=== PATIENT | female | born 1950 | race Caucasian/White ===

== ENCOUNTER → 2020-01-21 09:23 | Outpatient (CLI) | payer MEDICARE, OTHER, SELFPAY ==
[2020-01-21 11:28] LABS: COVID19 -Nasal RAPID Negative (Negative)
== END ==
PROVIDERS: PCP Family Medicine; Visit Provider Physician Assistant
DX: Z11.59 Encounter for screening for other viral diseases (principal)
CPT/HCPCS: 87635

== ENCOUNTER 2020-01-23 06:22 | Day surgery (SDC) | payer MEDICARE, SELFPAY ==
[2020-01-16 13:46] VITALS: BMI 36.7
[2020-01-23] VITALS (20 sets, daily range): BP systolic 94–153; BP diastolic 45–84; PULSE 52–74; RESP 10–18; TEMP 35.8–36.6; O2SAT 92–99; BMI 40.4
--- NOTE | 2020-01-23 06:29 | DI.RAD.S_ITS ---
PROCEDURE: XR KNEE RT 1TO2V INDICATIONS: post op films TECHNIQUE: To view(s) of the knee acquired. COMPARISON: None. FINDINGS: Bones: Patient is status post knee joint arthroplasty. Hardware components are in expected positions. Visualized bony structures are intact. Soft tissues: Overlying postoperative changes are noted. IMPRESSION: Normal alignment after right total knee arthroplasty. Dictated by: Kai Domínguez M.D. on 01/23/2020 at 11:46 Approved by: Kai Domínguez M.D. on 01/23/2020 at 11:46
[2020-01-23] MEDS: CELECOXIB 200 MG CAPSULE PO (07:09)
[2020-01-23] MEDS: ACETAMINOPHEN 325 MG TABLET 975 MG PO (07:09)
[2020-01-23] MEDS: PREGABALIN 75 MG CAPSULE PO (07:09)
[2020-01-23] MEDS: LACTATED RINGERS 1,000 ML 42 ML IV ×2 (07:15→09:06)
[2020-01-23] MEDS: CEFAZOLIN 2 GM/100 ML FROZ.PIGGY IV ×3 (07:49→23:42)
--- NOTE | 2020-01-23 07:49 | PM.PREOP ---
Pre-operative Note COVID-19 COVID-19 status: Negative Result date/Date tested (Pos, Neg/Pending): 01/21/20 Interval Note History & Physical reviewed/Exam performed by Physician: Yes Changes to H&P: No
--- NOTE | 2020-01-23 07:50 | P.OP_ITS ---
Operative Date/Time/Diagnoses Date of procedure: 01/23/20 Time of procedure: 09:33 Pre-op diagnosis: Right knee osteoarthritis Post-op diagnosis: same Procedure & Clinicians Procedure: Right total knee arthroplasty Same procedure as scheduled: Yes Indications: The patient presents today for total knee arthroplasty after failure of conservative treatment. The nature of the procedure including the risks and benefits, alternatives, postoperative course and expected outcome were discussed and all questions answered. Consent was obtained. Operative site confirmed and marked. Surgeon: Abimael Tidwell Barrel Cleaner: Tashi Robles Anesthesia Type: General, Spinal and Local Operative Notes Closure Type: primary Specimen(s): none sent Prosthetic devices, grafts, tissues, transplants, or devices: Espinal and Nephew Rosio BCS: [xx] femoral component, [xx] tibial component, [xx] mm BCS polyethylene tray and [xx] mm round patella Applied: implant(s) Estimated Blood Loss (mL): 5 Blood products transfused: none Tourniquet time (min): 67 Procedure in detail: The patient was taken to the operative suite and placed under anesthesia. The patient was given prophylactic antibiotics prior to surgery. The patient was also given tranexamic acid, 1 g, just prior to surgery for postoperative hemostasis. The lateral knee was prepped and the joint injected with 20 mL of 1% Lidocaine with epinephrine. The knee was then prepped and draped in usual sterile fashion. The leg was exsanguinated with an Esmarch dressing and the tourniquet raised to 300 torr. A 15 cm anterior incision was made. Next a medial trivector arthrotomy was made. The extensor mechanism was marked to ensure accurate repair. Initial exposing dissection was carried out medially and laterally. The knee was then flexed and the intramedullary femoral guide shelli placed. The distal femoral cut was made in 6? of valgus at the +1 position. The femoral size was measured and the appropriate cutting block was then placed and the anterior, posterior and chamfer cuts made. The intramedullary tibial alignment shelli was then placed. The guide was set to remove approximately 9 mm from the less affected medial side. The proximal tibial cut was then made with an oscillating saw. All meniscus and bony debris was then removed. Posterior femoral osteophytes removed with a curved osteotome. Flexion extension gaps were checked. No specific balancing was required other than routine exposure and removal of osteophytes. The soft tissues were then injected with a combination of 20 mL of half percent Marcaine with epinephrine and 20 mL of Exparel. The trial components were then placed. The knee was then extended and the patellar thickness was measured and a cut made removing approximately 9 mm of bone. The patella was then sized and drilled. Some excess lateral bone was excised and the patellofemoral ligament released. The knee went into full extension and flexion beyond 130?. There was excellent medial-lateral balance throughout motion. Patellar tracking was excellent. The trial components were removed and the knee was cleansed with Pulsavac irrigation and dried. The final components were cemented with high viscosity vacuum mixed bone cement with antibiotics. The joint was filled with a dilute Betadine solution. The knee was held in extension and the patellar clamped until the cement was adequately cured. The knee was then irrigated. The extensor mechanism was closed with 5 interrupted #1 Vicryl sutures and a running Quill suture at approximately 90 degrees of flexion. The joint was then injected with a combination of 1 g of tranexamic acid and 20 mL of quarter percent Marcaine with epinephrine. The subcutaneous tissue was closed with 2 0 Vicryl. The skin was closed with absorbable subcuticular sutures and surgical adhesive. An Aquacel dressing and Amadeo wrap were then applied. The patient tolerated the procedure well and was returned to recovery room in good condition. Complications: none Post-operative Condition: stable Disposition: PACU Plan for aftercare: [facility] Protocol.
--- NOTE | 2020-01-23 08:20 | SUR.OPER ---
Supine on padded OR bed. Pillow under head, arms secured on padded armboards <90 degree abduction. Safety belt across torso. Non-operative leg secured with tape over blanket over lower leg. Operative leg secured in Maikel positioner. Foam padded brace at thigh of operative leg.
[2020-01-23] MEDS: BUPIVACAINE 0.25% W/ EPI (PF) 40 ML, BUPIVACAINE LIPOSOME 266 MG, SODIUM CHLORIDE 0.9% ... INJ (08:26)
[2020-01-23] MEDS: LIDOCAINE 1% W/EPI 20 ML INJ (08:26)
[2020-01-23] MEDS: BUPIVACAINE 0.25% W/ EPI (PF) 20 ML, TRANEXAMIC ACID 1,000 MG, SODIUM CHLORIDE 0.9% 10 ML INJ (08:29)
[2020-01-23] MEDS: TRANEXAMIC ACID 1,000 MG VIAL 1000 MG INJ (08:38)
[2020-01-23] MEDS: LACTATED RINGERS 1,000 ML 100 ML IV ×2 (10:57→21:09)
--- NOTE | 2020-01-23 11:36 | PC.NURSE ---
Day shift note: Patient admitted to room 211 S/P Right TKA scheduled by Dr. Tidwell. Awake, alert, and pleasant. Received on RA, VSS and afebrile. IVF initiated, and SCDs placed on arrival. Oriented to room, environment, and plan of care. High fall risk precautions initiated, call light within reach.
[2020-01-23] MEDS: IBUPROFEN 400 MG TABLET PO ×3 (11:49→23:43)
[2020-01-23] MEDS: ONDANSETRON 4 MG/2 ML INJ IV ×2 (13:30→19:53)
--- NOTE | 2020-01-23 15:52 | PC.NURSE ---
Patient is nauseated and has had 400 cc or emesis, w/ 300 earlier. Patient feels like she can't move her head w/o feeling the need to vomit.
[2020-01-23] MEDS: METOCLOPRAMIDE 10 MG/2 ML INJ IV (16:43)
--- NOTE | 2020-01-23 16:46 | PT-IP ANOTE ---
Attempted to see pt twice. She was in good spirits as SPT gathered PLOF. However, with any movement, pt experienced nausea and emesis. Will follow up with pt morning of 01/24/20.
[2020-01-23] MEDS: SIMVASTATIN 40 MG TABLET PO (21:05)
[2020-01-23] MEDS: ACETAMINOPHEN 325 MG TABLET 650 MG PO (21:05)
[2020-01-23] MEDS: ASPIRIN EC 81 MG TABLET PO (21:05)
[2020-01-23] MEDS: DOCUSATE 100 MG CAPSULE PO (21:06)
[2020-01-23] MEDS: CITALOPRAM 10 MG TABLET 40 MG PO (21:06)
[2020-01-23] MEDS: OXYCODONE IR 5 MG TABLET PO (21:06)
[2020-01-23] MEDS: hydroCHLOROthiazide 12.5 MG CAPSULE PO (21:07)
[2020-01-23] MEDS: lisinopriL 20 MG TABLET PO (21:07)
[2020-01-23] MEDS: PANTOPRAZOLE 20 MG TABLET PO (21:07)
[2020-01-23] MEDS: hydrOXYzine pamoate 25 MG CAPSULE PO (21:14)
--- NOTE | 2020-01-23 22:52 | PC.NURSE ---
A&OX3. 97%RA. nausea controlled with reglan and zofran. pain 08/09 gave oxycodone 5mg per patient request. pt was SBA-fww to the BSC. cms+ scds. 1 incontinent void, PVR 40cc.
[2020-01-24] MEDS: IBUPROFEN 400 MG TABLET PO ×2 (03:59→08:50)
[2020-01-24 05:05] VITALS: BP 119/64; PULSE 53; RESP 16; O2SAT 99
[2020-01-24 05:46] LABS: Hematocrit 34.6 % (36-46); Hemoglobin 11.7 g/dL (12.0-16.0)
[2020-01-24] MEDS: OXYCODONE IR 5 MG TABLET PO (06:06)
[2020-01-24 07:23] VITALS: BP 111/61; PULSE 64; RESP 13; TEMP 36.4; O2SAT 96
--- NOTE | 2020-01-24 07:27 | PM.PN.1 ---
Subjective Subjective Date Patient Seen: 01/24/20 Time Patient Seen: 07:27 Interval history: Patient is POD#1 s/p R TKA with Dr. Tidwell. Had significant nausea and vomiting overnight that did not respond to Zofran. Reglan added overnight and patient had some relief. She denies any nausea or vomiting this morning. Pain has been controlled with Oxycodone. No complaints. Exam Vital Signs (past 8 hours): - 01/24/20 05:05 Pulse Rate 53 L Respiratory Rate 16 Blood Pressure 119/64 Pulse Oximetry 99 Oxygen Delivery Method Room Air Oxygen Flow Rate 0 Narrative Exam Narrative: 69 year old female resting in bed. Alert and oriented in no acute distress. Dressing in place is CDI. Calves are soft, nontender. Patient able to dorsiflex and plantar flex the ankle and toes. Objective Labs Result Diagrams: 01/24/20 05:15 Labs: Laboratory Results - last 24 hr 01/24/20 05:15 Hgb 11.7 L Hct 34.6 L PFSH Medical History Anxiety Depression GERD (gastroesophageal reflux disease) HLD (hyperlipidemia) HTN (hypertension) Osteoarthritis Surgical History (System 01/17/20 @ 13:59 by Lady Phyllis Lew) History of bunionectomy of both great toes History of surgery Hx of appendectomy (05/2019) Hx of arthroscopy of right knee (~2016) Hx of cholecystectomy (~2014) Hx of dilation and curettage Hx of sinus surgery Hx of tubal ligation Social History household members: spouse Smoking Status: Never smoker alcohol intake: current Assessment & Plan Assessment & Plan narrative: Patient doing well postop day 1 s/p total knee arthroplasty. Patient is obese which did increase the complexity of her surgery and puts her at higher risk for postoperative complications including poor wound healing and dehiscence. She will continue to work with PT today. Nausea/vomiting has stopped at this point. ASA 81mg BID for DVT prophylaxis. Her is available as assisted living housekeeper at home. Scripts were provided preop. Discharge to home later this afternoon.
[2020-01-24] MEDS: ACETAMINOPHEN 325 MG TABLET 650 MG PO (08:50)
[2020-01-24] MEDS: OXYCODONE IR 10 MG TABLET PO (08:51)
[2020-01-24] MEDS: DOCUSATE 100 MG CAPSULE PO (08:51)
[2020-01-24] MEDS: ASPIRIN EC 81 MG TABLET PO (08:51)
[2020-01-24 10:12] VITALS: PULSE 75; RESP 16; O2SAT 96
--- NOTE | 2020-01-24 10:30 | PT.IIE ---
Addendum entered and electronically signed by Heather Garza PT 01/24/20 11:10: Clarification on home set up: Pt able to access main level via ramp + 2 platform steps. Original Note: Current Diagnoses Unilateral primary osteoarthritis, right knee (01/23/20) Pain, unspecified (01/23/20) Surgery Performed Operation Date: 01/23/20 07:45 Actual Procedures p Total Knee Arthroplasty(Right) - Abimael Tidwell MD Surgical History (This Medical Record has been edited. Action required.) History of bunionectomy of both great toes History of surgery Hx of appendectomy (05/2019) Hx of arthroscopy of right knee (~2016) Hx of cholecystectomy (~2014) Hx of dilation and curettage Hx of sinus surgery Hx of tubal ligation Medical History (Last Reviewed 01/24/20 @ 07:31 by Sangeeta Love PA-C) Anxiety Depression GERD (gastroesophageal reflux disease) HLD (hyperlipidemia) HTN (hypertension) Osteoarthritis Physical Therapy Inpatient Evaluation/Re-Eval M1 PT/OT-IP Prior Functional Status Start: 01/23/20 12:00 Freq: NEEDED Status: Active Protocol: Document 01/23/20 14:07 DE (Rec: 01/23/20 14:16 DE [id number]) Medical Review Prior Functional Status Medical History Reviewed Yes Diet/Fluid Consistency Regular Communication WNL. No deficits noted. Able to make needs known. Mobility and Gait IND for all mobility and amb without AD at baseline. Pt had difficulty amb more than ~200 ft d/t severe knee pain. Activities of Daily Living and IADL's IND for all ADLs and IADLs including driving at baseline. Social History Household Members spouse Living Arrangements House Number of Floors (Floors) Two Floors Number of Stairs To Enter/Railing? Front entrance has 4 platform CRYSTAL. Pt's believes the front entrance would be the easiest way to enter. Side entrance has 1 CRYSTAL without railing Another entrance through laundry room has 4 CRYSTAL with R railing up. 13 steps inside with L railing up to bedrooms. Pt would like to be able to go to the upstairs. Home Environment Standard Height Toilet,Walk in Shower Home Equipment Front Wheel Walker,Straight Cane,Raised Toilet Seat w/ Armrests Employment Status Retired Additional Social History Comment took a week off work to assist pt at home. Pt also has other [facility] members and friends nearby who can help if needed. M2 PT-IP Current Condition Start: 01/23/20 12:00 Freq: NEEDED Status: Active Protocol: Document 01/24/20 10:25 DE (Rec: 01/24/20 10:49 DE [id number]) Physical Therapy Current Condition Current Condition Evaluation Date 01/24/20 Treatment Diagnosis R TKA; Difficulty with walking . Onset Date 01/23/20 Weight Bearing Status Weight Bearing Status Weight Bear as Tolerated M3 PT-IP Subjective Start: 01/23/20 12:00 Freq: NEEDED Status: Active Protocol: Document 01/24/20 10:25 DE (Rec: 01/24/20 10:49 DE [id number]) Subjective Physical Therapy Visit Type Type Initial Evaluation Visit Start Time 09:15 Visit Stop Time 09:56 Total Visit Minutes 41 Notes SPT Abimael led session under direct supervision of PT Heather throughout the entire session. Number of LOGGER ALL ROUND Visits 0 Physical Therapy Visit Comments Patient Comments Pt is agreeable to do PT. M4 PT-IP Mobility and Gait Start: 01/23/20 12:00 Freq: NEEDED Status: Active Protocol: Document 01/24/20 10:25 DE (Rec: 01/24/20 10:49 DE [id number]) PT-Bed Mobility Assessment Supine to Sit Supine to Sit Standby Assistance,Bedrails Scooting Scooting to Edge of Bed Standby Assistance PT-Transfer Assessment Sit to and From Stand Sit to and from Stand Contact Guard Assistance,Use of Upper Extremities Equipment Transfer Assistive Device Gait Belt,Front Wheeled Walker Orthotic/Prosthetic Devices or Brace: No Transfers Transfer Destination Chair Transfer Technique Stand Step Pivot Transfer Ability Level of Assist Contact Guard Assistance,Use of Upper Extremities Comments Mobility Comments Pt was lying supine with elevated HOB upon arrival. Spouse, Phillip, was at bedside. Pt completed supine to sit at R EOB SBA with B bedrails. Pt performed sit to stand with FWW CGA in staggered stance. Pt had most of WB through LLE during sit to stand. In standing, pt performed side to side weight shifting and marching in place. Pt tolerated WB on surgical limb well but had to rely heavily on the BUE. Pt then amb ~90 ft total out in the hallway and back to the room with FWW CGA. Pt demonstrated antalgic step -to gait pattern with limping, decreased stride length, and decreased feet clearance. Her gait speed was very slow, whih was 0.23 ft/s. Pt performed 1 platform step x2 with FWW CGA . The first time, pt performed with PT. the second time, pt performed with her , Phillip. Pt did not demonstrate any unsteadiness or LOB. Pt relied heavily on the FWW and PT instructed to stabilize the FWW. Pt then amb back to the room and sat down in the chair with FWW CGA. Call light placed within reach . Gait Assessment Gait Gait Assistance Required: Contact Guard Assist Distance (Feet) 90 Able to Maintain Weight Bearing Status Yes During Gait Assistive Devices Assistive Device Gait Belt,Front Wheeled Walker Orthotic/Prosthetic Devices or Brace: No Gait Deviations General Gait Pattern Antalgic,Decreased Stride Length,Decreased Feet Clearance,Step-to Gait Factors Limiting Gait Function Factors Limiting Gait Function Decreased Activity Tolerance, Decreased Strength,Limited Range of Motion,Pain,Poor Balance Comments Gait Comments See mobility comments. Stair Climbing Assessment Evaluation Level of Assist On Stairs Contact Guard Assistance Devices Stair Climbing Assistive Devices Front Wheel Walker Technique/Endurance Stair Climbing Direction Ascend and Descend Stair Climbing Technique Step to Step Number of Steps Climbed 1 Query Text: Stair Climbing Set # Repetitions (reps) 2 Comments Stair Climbing Comments See mobility comments. PT-Balance Assessment Sitting Balance and Reactions Static Sitting Balance Ability Normal Dynamic Sitting Balance Ability Good Standing Balance and Reactions Static Standing Balance Ability Good Dynamic Standing Balance Ability Fair M5 PT-IP Objective Assessments Start: 01/23/20 12:00 Freq: NEEDED Status: Active Protocol: Document 01/24/20 10:25 DE (Rec: 01/24/20 10:49 DE [id number]) Orientation Orientation/Cognition Level of Alertness Alert Orientation Name,Age,Birthday,Month,Date, Year,Day of Week,Place, Situation Language Function Ability No Deficits Noted Safety Awareness Understands Safety Issues Memory Description No Deficits Noted Gross Range of Motion Lower Extremity ROM Assessment Right Impaired Strength Lower Extremity Strength Assessment Right Impaired Coordination Assessment Gross Coordination Gross Coordination WNL Sensation Assessment Sensation Gross Sensation WNL Light Touch Intact Muscle Tone Muscle Tone WNL Yes M6 PT-IP Treatment Start: 01/23/20 12:00 Freq: NEEDED Status: Active Protocol: Document 11/24/20 10:25 DE (Rec: 01/24/20 10:49 DE [id number]) Physical Therapy Treatment Exercises Exercises Ankle Pumps,Gluteal Sets,Quad Sets,Heel Slides Education Education Provided Weight Bearing Status,Post-Op Packet,Safety Other Treatments Other Treatment Performed Pt was educated on WB status, safety, and role of PT. M7 PT-IP Assessment and Plan Start: 01/23/20 12:00 Freq: NEEDED Status: Active Protocol: Document 01/24/20 10:25 DE (Rec: 01/24/20 10:49 DE [id number]) PT Summary Assessment and Plan Potential Rehabilitation Potential Good Status of Condition at Evaluation Stable Summary Impairments Pain,ROM,Strength,Balance,Bed Mobility,Transfers,Gait, Activity Tolerance Progress Towards Goals Safe For Discharge Assessment Summary Etelvina is a 69 yo female s/p R TKA POD1. At baseline, Pt was IND for all mobility and amb without AD. Pt difficulty with amb more than ~200 ft d/t knee pain. On evaluation, pt required CGA-SBA for all mobility, transfers, amb, and stair slimbing with use of FWW . Pt amb ~90 ft and performed 1 platform step x2 with FWW CGA. Pt had very slow gait speed at ~0.23 ft/s but was steady without any LOB during amb or stair climbing. PT anticipates pt will be safe for d/c home with assistance. Pt will benefit from outpatient PT to improve knee ROM and strength as well as balance and activity tolerance . Frequency of Treatment Frequency Of Treatment Discharge Discharge Recommendations PT Discharge Recommendations Home with Assistance, Outpatient PT Transportation Needs at Discharge Private Vehicle Treatment was provided by Abimael Jefferson, PATRICE and supervised by Heather Garza, PT. I personally reviewed this note and agree with its contents.
--- NOTE | 2020-01-24 11:01 | PC.NURSE ---
Day shift note: Patient awake, alert, and pleasantly cooperative. CMS intact to RLE. Tolerating diet, and voiding. Up OOB, ambulating in hallway and in room with FWW. Cleared by PT for discharge. Discharge orders given to patient, discussed importance of F/U with Dr. Tidwell on scheduled appointment on the 01/29, s/sx of infection, new medication, and mobility restrictions. Both spouse and patient verbalized understanding of instructions. Dressed self with minimal assistance. Home via private vehicle in stable condition.
--- NOTE | 2020-01-24 13:47 | CM.DANOTE ---
Discharge Planning/Care Management DCP: assessment: initiated: case received and discussed in Team Rounds. A d/c order was in place. PT planned to see pt this morning. A check in after Rounds showed that pt was cleared for home by PT and left for home in company of spouse about 1100. Payer: [employer]. Admitted yesterday for scheduled R TKA: surgeon: Dr. Tidwell. No d/c concerns were noted by the care team members. Advanced directive, confirm from FAMILY Start: 01/23/20 11:04 Freq: Q24H Status: Discharge Protocol: Document 01/23/20 11:04 EM (Rec: 01/23/20 11:16 EM [id number]) Advance Directive, confirm on record Time 11:16 Person contacted Etelvina Copy received No CM Discharge Assessment Start: 01/24/20 13:47 Freq: Status: Active Protocol: Document 01/24/20 13:47 ITV (Rec: 01/24/20 13:47 ITV [id number]) Discharge Planning Assessment Advance Directives? Yes Advance Directives on File No History Provided By Medical Record Prior Living Arrangements House Household Members spouse Pre-Anesthesia Assessment Start: 01/16/20 13:46 Freq: Status: Discharge Protocol: Document 01/16/20 13:46 CAB (Rec: 01/16/20 14:31 CAB [id number]) Pre-Anesthesia Assessment Patient Information Reviewed Via Phone Assessment Assessment Completed With Patient Diagnostic Results BMP/CMP,CBC,EKG Comment Outside labs scanned, COVID screen-pt attempting to schedule Primary Care Provider Bj Luu Seen Specialist in Last 12 Months Yes Specialist Seen Orthopedist Primary Language Croatian Stock Buyer Required No Height 166.37 cm Weight 101.605 kg Body Mass Index (BMI) 36.7 Hearing Ability Normal Visual Assist Glasses Dentition Type Teeth, Natural Present Barriers to Learning None Hx Anesthesia Reactions No Hx Family Anesthesia Reaction No Hx Malignant Hyperthermia No Hx Blood Transfusions No Anesthesia Review Requested No alcohol intake current alcohol intake frequency a few times a month Smoking Status Never smoker Substance Use Type does not use Pain Present Pain Reported Musculoskeletal Symptoms Abnormal Gait,Difficulty Walking,Joint Pain History of Falling (Recent or History of Yes ) Patient is completely paralyzed or No completely immobile Mental Status Oriented to own ability Is patient on oxygen? No Does patient have MADRID/SOB No Hx Sleep Apnea No Currently Taking a Beta Lily No Can You Climb a Flight of Stairs Without Yes SOB Hx Chest Pain No Hx SOB No Hx Syncope or Dizziness No Anti-Coagulant Therapy No Has a Medical Research Scientist No Cardiac Testing No Hx Pacemaker/ICD No Pacemaker Rep Required? No Cardiac Clearance Received Not Applicable Diet Type At Home Regular dysphagia No Gastrointestinal Symptoms Constipation,Diarrhea,Reflux Urinary Catheter Present No Hx Urinary Self Catheterization No Diabetes No Patient No Lactating No Hx Drug Resistant Organism No Presence of External or Internal Medical No Devices Have you had any close contact with No someone diagnosed with COVID-19? Marital Status Lives With spouse,children Prior Living Arrangements House Number of Floors (Floors) Two Floors Support System Child/Children,Spouse Does the Patient Have Assistance After Yes Surgery Patient Discharge Plan Description Return Home Comment Pt advised 1 day length of stay per surgeon. Pt wants to go home same day Feels Safe in Current Environment Yes Been Physically Hurt or Threatened By a No Person in Current Environment Do you have thoughts of harming yourself None or others? Are you currently considering suicide? No Do you have a plan to hurt yourself or No Plan others? Do You Have Any Spiritual Beliefs That No May Affect Your HC Choices? Do You Have Any Cultural Practices That No May Affect Your HC Choices? Comment Spiritism Who Can We Speak to About Patient's Care Family, friends Identifying Code for Release of Patient Declines to issue Information Health Care Proxy/Next of Kin Phillip () Health Care Proxy Emergency Contact Name Phillip () Sailaja ( daughter) Emergency Contact Phone Number Phillip: [phone] Sailaja: [phone] Advance Directives? Yes Advance Directives on File No Requested Patient Bring Advanced Yes Directives DOS Power of Mortuary Operations Manager Yes Power of Mortuary Operations Manager Name Phillip () Power of Mortuary Operations Manager PAC Instructions Do not shave/clip surgical site,Durable medical equipment ,Medications to take/avoid, Nasal antibiotic,No ETOH/ petroleum product on skin DOS, NPO,Post-op transportation,Pre -surgical wash,Sturdy shoes/ comfortable clothes,Do not bring valuables and remove jewelry
== END 2020-01-24 11:05 | disposition home or self-care (01) ==
LOC: OR 06:24 → AC 06:25
PROVIDERS: PCP Family Medicine; Referring Provider Orthopaedic Surgery; Visit Provider Orthopaedic Surgery
PROC: 0SRC0JZ Replacement of Right Knee Joint with Synthetic Substitute, Open Approach (ICD-10-PCS; CPT 27447; principal; 2020-01-23 07:45)
DX: M17.11 Unilateral primary osteoarthritis, right knee (principal); I10 Essential (primary) hypertension; F41.9 Anxiety disorder, unspecified; E78.5 Hyperlipidemia, unspecified; K21.9 Gastro-esophageal reflux disease without esophagitis; E66.01 Morbid (severe) obesity due to excess calories; Z68.41 Body mass index [BMI] 40.0-44.9, adult
CPT/HCPCS: 27447; 36415; 73560; 85014; 85018; 94762; 97116; 97161; C1776; C9290; J0690; J2250; J2274; J2405; J2704; J2765